=== PATIENT | female | born 1940 | race Caucasian/White ===

== ENCOUNTER → 2019-11-07 | Outpatient (CLI) | payer OTHER | LOC: LABMALL 13:39 → MRI 13:39 | DX: G08 Intracranial and intraspinal phlebitis and thrombophlebitis (principal); R51 Headache; I67.9 Cerebrovascular disease, unspecified; R27.0 Ataxia, unspecified ==

== ENCOUNTER → 2019-11-10 | Outpatient (CLI) | payer OTHER | LOC: MRI 11:10 | DX: I67.82 Cerebral ischemia (principal); G08 Intracranial and intraspinal phlebitis and thrombophlebitis; R51 Headache; I67.9 Cerebrovascular disease, unspecified; R27.0 Ataxia, unspecified ==